=== PATIENT | male | born 1990 | race Caucasian/White ===

== ENCOUNTER → 2018-07-06 | Outpatient (CLI) | payer BC ==
--- NOTE | 2018-07-06 18:36 | DIAGNOSTIC IMAGING REPORT ---
SCROTAL ULTRASOUND CLINICAL HISTORY: EPIDIDYMITIS. COMPARISON STUDY: None. TECHNIQUE: Grayscale and color and duplex Doppler sonography of the scrotum was performed. FINDINGS: The right testis measures 3.6 x 2.3 x 1.8 cm and the left measures 3.4 x 2.5 x 1.8 cm. There is no testicular mass. Color flow within each testis is symmetric. The right epididymis is normal. Note is made of a 4 mm left epididymal head cyst. The left epididymal head and tail are normal. The body is not well visualized. IMPRESSION: 1. Normal sonographic appearance of the testes. 2. No sonographic evidence of epididymitis. Left epididymal body not well visualized but no epididymal enlargement or hypervascularity to suggest epididymitis. 3. 4 mm left epididymal head cyst Electronically signed by: Robe Bullard M.D. 07/06/2018 6:35 PM Dictated Date/Time: 07/06/2018 6:33 PM
[2018-07-06 19:30] LABS: ALBUMIN 4.4 gm/dl (3.4-5.0); ALKALINE PHOSPHATASE 84 U/L (45-117); ALT/SGPT 26 U/L (12-78); AST/SGOT 20 U/L (15-37); BLOOD UREA NITROGEN 10 mg/dl (7-18); CARBON DIOXIDE 27 mmol/L (21-32); CREATININE 0.87 mg/dl (0.60-1.40); GLUCOSE 79 mg/dl (70-99); POTASSIUM 3.8 mmol/L (3.5-5.1); SODIUM 137 mmol/L (136-145); TOTAL PROTEIN 8.2 gm/dl (6.4-8.2)
== END | disposition home or self-care (01) ==
LOC: C.ULTR 17:28
PROVIDERS: ATTEND Urology
DX: N50.3 Cyst of epididymis (principal); R31.29 Other microscopic hematuria; N45.1 Epididymitis